=== PATIENT | male | born 1955 | race Caucasian/White ===

== ENCOUNTER → 2023-06-11 17:16 | Outpatient (REF) | payer MEDICARE, OTHER, SELFPAY | LOC: RAD 17:16 | PROVIDERS: ATTENDING PHYSICIAN Family Medicine | DX: I10 Essential (primary) hypertension (principal); R51.9 Headache, unspecified; R41.0 Disorientation, unspecified | CPT/HCPCS: 70450 ==

== ENCOUNTER → 2025-01-30 14:41 | Outpatient (REF) | payer OTHER, SELFPAY | LOC: RCS 14:41 | PROVIDERS: ATTENDING PHYSICIAN Internal Medicine Cardiovascular Disease; FAMILY PHYSICIAN Family Medicine | DX: R06.02 Shortness of breath (principal) | CPT/HCPCS: 93306 ==